=== PATIENT | male | born 1960 | race Caucasian/White ===

== ENCOUNTER 2023-09-09 10:38 | Emergency (ER) | payer OTHER ==
[2023-09-09 12:40] LABS: #Basophils 0.1 10x3/uL (0.0-0.2); #Eosinphils 0.1 10x3/uL (0.0-0.5); #Monocytes 0.9 10x3/uL (0.0-1.1); %Basophils 0.8 % (0.0-2.0); %Lymphocytes 20.9 % (18.0-47.0); %Monocytes 6.9 % (0.0-10.0); Hematocrit 55.5 % (38.8-50.0); Hemoglobin 19.4 g/dL (13.5-17.5); Mean Corpuscular Hemoglobin 30.1 pg (27.0-33.0); Mean Corpuscular Volume 86.2 fl (81.2-95.1); Mean Platelet Volume 9.3 fl (7.4-10.4); Platelet Count 243 10x3/uL (150-450); RBC Distribution Width 13.7 % (11.5-14.5); Red Blood Cell (RBC) Count 6.44 10x6/uL (4.32-5.72); White Blood Cell (WBC) Count 12.9 10x3/uL (3.5-10.5)
[2023-09-09 12:47] LABS: ALT (SGPT) 17 U/L (8-55); AST (SGOT) 19 U/L (5-34); Albumin 4.6 g/dL (3.4-4.8); Alkaline Phosphatase 78 U/L (40-110); Anion Gap 20 mmol/L (10-20); BUN (Urea Nitrogen) 16 mg/dL (8.4-25.7); Calc. Creatinine Clearance 0 mL/min (70-130); Carbon Dioxide 17 mmol/L (23-31); Chloride 102 mmol/L (98-107); Estimated GFR 92; Globulin 2.9 g/dL (2.4-3.5); Glucose 96 mg/dL (80-115); Lipase 9 U/L (8-78); Potassium 4.1 mmol/L (3.5-5.1); Protein, Total 7.5 g/dL (5.8-8.1); Sodium 135 mmol/L (136-145)
[2023-09-09 12:53] LABS: Troponin I Less than 0.010 ng/mL (< 0.028)
[2023-09-09] MEDS ORDERED: Piperacillin/Tazobactam 4.5 GM VIAL ONE (13:07)
[2023-09-09] MEDS ORDERED: Ketorolac Tromethamine 30 MG/ML VIAL ONE (13:27)
== END 2023-09-09 15:12 | disposition home or self-care (01) ==
LOC: CSHERS 10:38
DX: K80.50 Calculus of bile duct without cholangitis or cholecystitis without obstruction (principal); F17.210 Nicotine dependence, cigarettes, uncomplicated
CPT/HCPCS: 36415; 71045; 76705; 80053; 83605; 83690; 84484; 85025; 87040; 93005; 96374; 96375; J1885; J2543

== ENCOUNTER 2023-09-21 11:28 | Emergency (ER) | payer OTHER ==
[2023-09-21 13:28] LABS: #Basophils 0.1 10x3/uL (0.0-0.2); #Eosinphils 0.1 10x3/uL (0.0-0.5); #Monocytes 0.8 10x3/uL (0.0-1.1); #Neutrophils 9.5 10x3/uL (1.5-8.4); %Eosinophils 0.6 % (0.0-6.0); %Lymphocytes 16.5 % (18.0-47.0); %Monocytes 6.3 % (0.0-10.0); %Neutrophils 75.4 % (40.0-75.0); Hematocrit 52.5 % (38.8-50.0); Hemoglobin 18.1 g/dL (13.5-17.5); Mean Corpuscular HGB CONC 34.5 g/dL (32.0-36.0); Mean Corpuscular Hemoglobin 29.6 pg (27.0-33.0); Mean Corpuscular Volume 85.9 fl (81.2-95.1); Mean Platelet Volume 9.3 fl (7.4-10.4); Platelet Count 293 10x3/uL (150-450); RBC Distribution Width 13.9 % (11.5-14.5); Red Blood Cell (RBC) Count 6.11 10x6/uL (4.32-5.72); White Blood Cell (WBC) Count 12.6 10x3/uL (3.5-10.5)
[2023-09-21 13:32] LABS: ALT (SGPT) 22 U/L (8-55); AST (SGOT) 18 U/L (5-34); Albumin 4.5 g/dL (3.4-4.8); Alkaline Phosphatase 68 U/L (40-110); Anion Gap 17 mmol/L (10-20); BUN (Urea Nitrogen) 9 mg/dL (8.4-25.7); Bilirubin, Total 0.7 mg/dL (0.2-1.2); Calc. Creatinine Clearance 0 mL/min (70-130); Calcium 9.6 mg/dL (7.8-10.44); Carbon Dioxide 22 mmol/L (23-31); Chloride 103 mmol/L (98-107); Estimated GFR 97; Globulin 3.3 g/dL (2.4-3.5); Glucose 122 mg/dL (80-115); Lipase 10 U/L (8-78); Potassium 4.4 mmol/L (3.5-5.1); Protein, Total 7.8 g/dL (5.8-8.1); Sodium 138 mmol/L (136-145)
[2023-09-21] MEDS ORDERED: Ondansetron PF 4 MG/2 ML Vial ONE (13:39)
[2023-09-21] MEDS ORDERED: Morphine 4 MG/ML VIAL ONE (13:39)
== END 2023-09-21 16:58 | disposition home or self-care (01) ==
LOC: CSHERS 11:28
DX: K80.20 Calculus of gallbladder without cholecystitis without obstruction (principal); F17.210 Nicotine dependence, cigarettes, uncomplicated
CPT/HCPCS: 36415; 74177; 76705; 80053; 83690; 85025; 93005; 96374; 96375; J2270; J2405

== ENCOUNTER 2023-09-24 06:43 | Inpatient (IN) | payer OTHER ==
[2023-09-24] MEDS ORDERED: Morphine 4 MG/ML VIAL ONE ×2 (07:43→13:20)
[2023-09-24] MEDS ORDERED: Ondansetron PF 4 MG/2 ML Vial ONE ×2 (07:43→09:10)
[2023-09-24 07:53] LABS: #Basophils 0.1 10x3/uL (0.0-0.2); #Eosinphils 0.1 10x3/uL (0.0-0.5); #Monocytes 0.7 10x3/uL (0.0-1.1); %Basophils 0.7 % (0.0-2.0); %Eosinophils 0.7 % (0.0-6.0); %Lymphocytes 11.2 % (18.0-47.0); %Monocytes 6.6 % (0.0-10.0); %Neutrophils 80.4 % (40.0-75.0); Hematocrit 52.6 % (38.8-50.0); Hemoglobin 18.1 g/dL (13.5-17.5); Mean Corpuscular HGB CONC 34.4 g/dL (32.0-36.0); Mean Corpuscular Hemoglobin 29.9 pg (27.0-33.0); Mean Corpuscular Volume 86.8 fl (81.2-95.1); Mean Platelet Volume 9.5 fl (7.4-10.4); Platelet Count 269 10x3/uL (150-450); RBC Distribution Width 13.6 % (11.5-14.5); Red Blood Cell (RBC) Count 6.06 10x6/uL (4.32-5.72); White Blood Cell (WBC) Count 9.9 10x3/uL (3.5-10.5)
[2023-09-24 08:00] LABS: ALT (SGPT) 283 U/L (8-55); AST (SGOT) 211 U/L (5-34); Albumin 4.4 g/dL (3.4-4.8); Alkaline Phosphatase 195 U/L (40-110); Anion Gap 20 mmol/L (10-20); BUN (Urea Nitrogen) 9 mg/dL (8.4-25.7); Bilirubin, Total 4.4 mg/dL (0.2-1.2); Calc. Creatinine Clearance 0 mL/min (70-130); Calcium 9.3 mg/dL (7.8-10.44); Carbon Dioxide 19 mmol/L (23-31); Chloride 101 mmol/L (98-107); Estimated GFR 100; Globulin 3.2 g/dL (2.4-3.5); Glucose 97 mg/dL (80-115); Lipase 14 U/L (8-78); Potassium 4.2 mmol/L (3.5-5.1); Protein, Total 7.6 g/dL (5.8-8.1); Sodium 136 mmol/L (136-145)
[2023-09-24] MEDS ORDERED: Piperacillin/Tazobactam 4.5 GM VIAL ONE ×2 (09:01→14:25)
[2023-09-24] MEDS ORDERED: Bupivacaine PF 0.5% 30 ML VIAL ONE (14:36)
[2023-09-24] MEDS ORDERED: Iopamidol 30 ML ONE (15:12)
[2023-09-24] MEDS ORDERED: Glucagon 1 MG/ML KIT ONE (15:12)
[2023-09-24] MEDS ORDERED: SUGAMMADEX SODIUM 200 MG/2 ML VIAL ONE (15:19)
[2023-09-24] MEDS ORDERED: fentaNYL 50 mcg/mL 1 mL Vial ONE ×2 (15:24→17:35)
[2023-09-24] MEDS ORDERED: Promethazine HCl 25 MG/ML VIAL IM PRN (17:28)
[2023-09-24] MEDS ORDERED: Acetaminophen 325 MG TAB PO PRN (17:28)
[2023-09-24] MEDS ORDERED: Ondansetron PF 4 MG/2 ML Vial IVP PRN (17:28)
[2023-09-24] MEDS ORDERED: Morphine 4 MG/ML VIAL SLOW IVP PRN (17:28)
[2023-09-24] MEDS ORDERED: Mag-Al 1200 mg/1200 mg/30 ML UDCUP PO PRN (17:28)
[2023-09-24] MEDS ORDERED: Morphine 2 MG/ML VIAL SLOW IVP PRN (17:28)
[2023-09-24] MEDS ORDERED: Ipratropium/Albuterol 3 ML NEB NEB PRN (17:28)
[2023-09-24] MEDS: Piperacillin/Tazobactam 3.375 GM in Sodium Chloride 0.9% 100 ML IVPB SCH (18:30)
[2023-09-24] MEDS: Ketorolac Tromethamine 30 MG/ML VIAL IVP SCH ×2 (18:30→23:12)
[2023-09-24] MEDS: Famotidine/PF 20 mg/2ml Vial SLOW IVP SCH (21:59)
[2023-09-24] MEDS: D5 1/2 NS w/20 mEq KCL 1,000 ML IV SCH (22:00)
[2023-09-24 22:23] VITALS: BMI 33.3
[2023-09-25 03:53] LABS: #Monocytes 0.6 10x3/uL (0.0-1.1); #Neutrophils 7.6 10x3/uL (1.5-8.4); %Basophils 0.3 % (0.0-2.0); %Lymphocytes 10.4 % (18.0-47.0); %Monocytes 6.1 % (0.0-10.0); Hematocrit 44.4 % (38.8-50.0); Hemoglobin 15.1 g/dL (13.5-17.5); Mean Corpuscular Hemoglobin 29.9 pg (27.0-33.0); Mean Corpuscular Volume 87.9 fl (81.2-95.1); Mean Platelet Volume 9.6 fl (7.4-10.4); Platelet Count 240 10x3/uL (150-450); RBC Distribution Width 13.6 % (11.5-14.5); Red Blood Cell (RBC) Count 5.05 10x6/uL (4.32-5.72); White Blood Cell (WBC) Count 9.1 10x3/uL (3.5-10.5)
[2023-09-25 04:06] LABS: ALT (SGPT) 296 U/L (8-55); AST (SGOT) 224 U/L (5-34); Albumin 3.4 g/dL (3.4-4.8); Alkaline Phosphatase 177 U/L (40-110); Anion Gap 14 mmol/L (10-20); BUN (Urea Nitrogen) 9 mg/dL (8.4-25.7); Bilirubin, Total 3.8 mg/dL (0.2-1.2); Calc. Creatinine Clearance 158 mL/min (70-130); Calcium 8.3 mg/dL (7.8-10.44); Carbon Dioxide 22 mmol/L (23-31); Chloride 104 mmol/L (98-107); Estimated GFR 99; Globulin 2.4 g/dL (2.4-3.5); Glucose 149 mg/dL (80-115); Potassium 4.4 mmol/L (3.5-5.1); Protein, Total 5.8 g/dL (5.8-8.1); Sodium 136 mmol/L (136-145)
[2023-09-25] MEDS: Piperacillin/Tazobactam 3.375 GM in Sodium Chloride 0.9% 100 ML IVPB SCH ×3 (04:18→18:00)
[2023-09-25] MEDS: Ketorolac Tromethamine 30 MG/ML VIAL IVP SCH ×4 (05:04→23:32)
[2023-09-25] MEDS: Famotidine/PF 20 mg/2ml Vial SLOW IVP SCH ×2 (08:18→21:20)
[2023-09-25] MEDS: D5 1/2 NS w/20 mEq KCL 1,000 ML IV SCH ×2 (08:18→23:35)
[2023-09-25] MEDS ORDERED: Glucagon 1 MG/ML KIT ONE (12:21)
[2023-09-25] MEDS ORDERED: HYDROmorphone 0.5 MG/0.5 ML SYRINGE ONE (12:22)
[2023-09-25] MEDS ORDERED: SUGAMMADEX SODIUM 200 MG/2 ML VIAL ONE (12:22)
[2023-09-25] MEDS ORDERED: Rocuronium Bromide 10 MG/ML (10ML VIAL) ONE (12:28)
[2023-09-25] MEDS ORDERED: Ondansetron PF 4 MG/2 ML Vial ONE (12:28)
[2023-09-25] MEDS ORDERED: Lidocaine 1% PF 5 ML VIAL ONE (12:28)
[2023-09-25] MEDS ORDERED: PROPOFOL 20 ML ONE (12:28)
[2023-09-25] MEDS ORDERED: Succinylcholine 200 MG/10 ml SYRINGE FS ONE (12:28)
[2023-09-25] MEDS ORDERED: Indomethacin 50 MG SUPP ONE (12:41)
[2023-09-25] MEDS ORDERED: Iopamidol 30 ML ONE (12:41)
[2023-09-25] MEDS ORDERED: fentaNYL 50 mcg/mL 1 mL Vial ONE (12:50)
[2023-09-25] MEDS ORDERED: Dexamethasone 4 mg/ml Vial ONE (12:51)
[2023-09-25] MEDS ORDERED: PHENYLEPHRINE-NS 100 MCG/ML 10 ML SYRINGE ONE (13:06)
[2023-09-26] MEDS: Calcium Carbonate 500 MG ChewTAB PO PRN ×2 (01:09→04:10)
[2023-09-26] MEDS: Piperacillin/Tazobactam 3.375 GM in Sodium Chloride 0.9% 100 ML IVPB SCH (04:00)
[2023-09-26] MEDS: Ketorolac Tromethamine 30 MG/ML VIAL IVP SCH (06:08)
[2023-09-26 07:41] LABS: ALT (SGPT) 229 U/L (8-55); AST (SGOT) 91 U/L (5-34); Albumin 3.7 g/dL (3.4-4.8); Alkaline Phosphatase 155 U/L (40-110); Anion Gap 12 mmol/L (10-20); BUN (Urea Nitrogen) 7 mg/dL (8.4-25.7); Bilirubin, Total 1.6 mg/dL (0.2-1.2); Calc. Creatinine Clearance 150 mL/min (70-130); Calcium 8.8 mg/dL (7.8-10.44); Carbon Dioxide 27 mmol/L (23-31); Chloride 103 mmol/L (98-107); Estimated GFR 98; Globulin 2.6 g/dL (2.4-3.5); Glucose 125 mg/dL (80-115); Potassium 4.2 mmol/L (3.5-5.1); Protein, Total 6.3 g/dL (5.8-8.1); Sodium 138 mmol/L (136-145)
[2023-09-26 09:45] VITALS: BP 146/87; TEMP 97.9
== END 2023-09-26 10:15 | disposition home or self-care (01) | DRG 419 ==
LOC: CSHERS 06:43 → CSHSDC 14:28 → CSHTELE 17:25
PROVIDERS: ADMIT Surgery; ATTEND Surgery
PROC: 0FT44ZZ Resection of Gallbladder, Percutaneous Endoscopic Approach (ICD-10-PCS; principal; 2023-09-24)
PROC: 0FC98ZZ Extirpation of Matter from Common Bile Duct, Via Natural or Artificial Opening Endoscopic (ICD-10-PCS; 2023-09-25)
DX: K80.46 Calculus of bile duct with acute and chronic cholecystitis without obstruction (principal); F43.10 Post-traumatic stress disorder, unspecified; F17.210 Nicotine dependence, cigarettes, uncomplicated; Z79.899 Other long term (current) drug therapy
CPT/HCPCS: 36415; 47532; 74330; 76705; 80053; 83690; 83735; 85025; 88304; 94760; C1725; C1769; C1889; J1100; J1170; J1611; J1885; J2270; J2272; J2405; J2543; J2704; J3010; J3480; J3490; Q9967; S0020; S0028